=== PATIENT | male | born 1930 | race Caucasian/White ===

== ENCOUNTER 2017-06-11 19:25 | Inpatient (IN) | payer OTHER, MEDICARE ==
[~2017-06-11] VITALS: Ht 170.2 cm; Wt 79.1 kg
[2017-06-11 20:56] LABS: BASOPHIL % 0.2 % (0-2); PLATELET COUNT 217 x10^3mcL (130-400)
[2017-06-11] MEDS ORDERED: NEURONTIN100 MG PO (21:10)
[2017-06-11] MEDS ORDERED: ZOLOFT50 MG PO (21:10)
[2017-06-11] MEDS ORDERED: NOR5 PO (21:11)
[2017-06-11] MEDS ORDERED: ZOCOR10 MG (21:11)
[2017-06-11] MEDS ORDERED: GOOD SENSE ASPI81 M3 PO (21:12)
[2017-06-11] MEDS ORDERED: PREDNISONE20 MG PO (21:12)
[2017-06-11] MEDS ORDERED: TRAZODONE50 M1 PO (21:12)
[2017-06-11 21:13] LABS: CK-MB 0.9 ng/mL (0-3.6)
[2017-06-11 21:14] LABS: FREE T4 0.94 ng/dL (0.76-1.46); FREE THYROXINE INDEX 2.4 ug/dL (1.4-4.5); T4(THYROXINE) 6.1 ug/dL (4.7-13.3)
[2017-06-11 21:20] LABS: T3 TOTAL 0.68 ng/mL
[2017-06-11 21:24] LABS: CALCIUM 8.6 mg/dL (8.5-10.1); CARBON DIOXIDE 27.8 mmol/L (21-32); CHLORIDE SERUM 100 mmol/L (98-107); CREATININE SERUM 0.8 mg/dL (0.7-1.3); GLUCOSE SERUM 83 mg/dL (74-106); SODIUM SERUM 136 mmol/L (136-145)
[2017-06-11 21:31] LABS: ALBUMIN 3.3 g/dL (3.4-5.0); ALKALINE PHOSPHATASE 85 U/L (46-116); ALT/SGPT 35 U/L (16-63); AST/SGOT 20 U/L (15-37); BILIRUBIN TOTAL 0.3 mg/dL (0.20-1.00); TOTAL PROTEIN, SERUM 6.8 g/dL (6.4-8.2)
[2017-06-11 21:51] LABS: C REACTIVE PROTEIN < 0.2 mg/dL (<=0.9)
[2017-06-11 22:06] LABS: ERYTHROCYTE SED RATE 13 mm/hr (0-20)
[2017-06-11 23:22] VITALS: BP 156/72
[2017-06-11 23:26] VITALS: BP 156/72
[2017-06-11 23:51] LABS: MAGNESIUM 2.1 mg/dL (1.8-2.4); PHOSPHOROUS 3.3 mg/dL (2.5-4.9)
[2017-06-11 23:55] LABS: CHOLESTEROL/HDL RATIO 2.2
[2017-06-12 00:56] LABS: microscopic required? NO
[2017-06-12 01:06] LABS: urine erythrocyte NEGATIVE (NEGATIVE)
[2017-06-12 01:33] VITALS: BP 156/72
[2017-06-12 06:22] VITALS: BP 114/69
[2017-06-12 06:40] LABS: BASOPHIL % 0.8 % (0-2); RED CELL DISTRIBUTION WIDTH 13.3 % (11.5-14.5)
[2017-06-12 07:03] LABS: CARBON DIOXIDE 26.1 mmol/L (21-32); CHLORIDE SERUM 104 mmol/L (98-107); CREATININE SERUM 0.7 mg/dL (0.7-1.3); GLUCOSE SERUM 82 mg/dL (74-106); MAGNESIUM 1.9 mg/dL (1.8-2.4); PHOSPHOROUS 2.7 mg/dL (2.5-4.9); POTASSIUM SERUM 3.6 mmol/L (3.5-5.1); SODIUM SERUM 138 mmol/L (136-145)
[2017-06-12 08:12] LABS: PLATELET COUNT 146 x10^3mcL (130-400)
[2017-06-12 09:50] VITALS: BP 157/65
[2017-06-12 13:51] VITALS: BP 138/78
[2017-06-12 16:37] VITALS: BP 133/58
[2017-06-12 21:48] VITALS: BP 142/60
[2017-06-13 05:34] VITALS: BP 154/69
[2017-06-13 06:03] LABS: BASOPHIL % 0.2 % (0-2); PLATELET COUNT 165 x10^3mcL (130-400); RED CELL DISTRIBUTION WIDTH 13.2 % (11.5-14.5)
[2017-06-13 06:55] LABS: CALCIUM 7.9 mg/dL (8.5-10.1); CHLORIDE SERUM 105 mmol/L (98-107); CREATININE SERUM 0.8 mg/dL (0.7-1.3); GLUCOSE SERUM 80 mg/dL (74-106); MAGNESIUM 1.6 mg/dL (1.8-2.4); PHOSPHOROUS 4.2 mg/dL (2.5-4.9); POTASSIUM SERUM 3.5 mmol/L (3.5-5.1); SODIUM SERUM 140 mmol/L (136-145)
[2017-06-13 09:29] VITALS: BP 144/64
[2017-06-13 11:48] VITALS: BP 149/66
[2017-06-13 17:34] VITALS: BP 167/78
[2017-06-13 22:12] VITALS: BP 121/51
[2017-06-14] VITALS (7 sets, daily range): BP systolic 123–174; BP diastolic 47–80
[2017-06-14 06:37] LABS: BASOPHIL % 0.2 % (0-2); PLATELET COUNT 168 x10^3mcL (130-400); RED CELL DISTRIBUTION WIDTH 13.2 % (11.5-14.5)
[2017-06-14 06:44] LABS: CALCIUM 8.3 mg/dL (8.5-10.1); CARBON DIOXIDE 29.1 mmol/L (21-32); CHLORIDE SERUM 105 mmol/L (98-107); CREATININE SERUM 0.8 mg/dL (0.7-1.3); GLUCOSE SERUM 85 mg/dL (74-106); MAGNESIUM 1.8 mg/dL (1.8-2.4); PHOSPHOROUS 3.7 mg/dL (2.5-4.9); POTASSIUM SERUM 3.6 mmol/L (3.5-5.1); SODIUM SERUM 140 mmol/L (136-145)
[2017-06-15] VITALS (7 sets, daily range): BP systolic 124–182; BP diastolic 53–72
[2017-06-15 07:07] LABS: MAGNESIUM 1.8 mg/dL (1.8-2.4)
[2017-06-15 07:10] LABS: ALBUMIN 2.9 g/dL (3.4-5.0)
[2017-06-15 07:13] LABS: BASOPHIL % 0.4 % (0-2); PLATELET COUNT 177 x10^3mcL (130-400); RED CELL DISTRIBUTION WIDTH 13.4 % (11.5-14.5)
[2017-06-16 06:34] VITALS: BP 156/66
[2017-06-16 07:55] VITALS: BP 172/82
[2017-06-16] MEDS ORDERED: LEVAQUIN750 MG PO (11:52)
[2017-06-16] MEDS ORDERED: LAC PO (11:53)
[2017-06-16] MEDS ORDERED: PROVENTIL0.09 MG/A1 INH (11:54)
[2017-06-16] MEDS ORDERED: MEDDP PO (12:04)
[2017-06-16 12:06] VITALS: BP 122/61
[2017-06-16 13:39] VITALS: BP 122/61
== END 2017-06-16 14:38 | disposition home health service (06) | DRG 177 ==
LOC: ED 19:25 → DU 22:20 → MU 06-15 22:35
PROVIDERS: Specialist; Student in an Organized Health Care Education/Training Program; ADMIT Family Medicine Sports Medicine
DX: J69.0 Pneumonitis due to inhalation of food and vomit (principal); J96.00 Acute respiratory failure, unspecified whether with hypoxia or hypercapnia; G92 Toxic encephalopathy; J47.1 Bronchiectasis with (acute) exacerbation; E44.0 Moderate protein-calorie malnutrition; F10.20 Alcohol dependence, uncomplicated; I11.9 Hypertensive heart disease without heart failure; J98.4 Other disorders of lung; E83.51 Hypocalcemia; E83.42 Hypomagnesemia; D53.9 Nutritional anemia, unspecified; M54.89 Other dorsalgia; G89.29 Other chronic pain; Z68.27 Body mass index [BMI] 27.0-27.9, adult; Z87.891 Personal history of nicotine dependence; Z79.82 Long term (current) use of aspirin; C44.309 Unspecified malignant neoplasm of skin of other parts of face; T51.0X1A Toxic effect of ethanol, accidental (unintentional), initial encounter
CPT/HCPCS: 36600; 83880; 84439; 87804; 90658; 92610; 92611-GN; 94150; 97110-GP; 97116-GP; 97530-GP; G0480; J0132; J1956; J3475; J3490; J7030; J7512; J7620; Q0092